=== PATIENT | female | born 2000 | race American Indian/Alaskan Native ===

== ENCOUNTER 2020-09-07 07:41 | Emergency (ER) | payer OTHER, MEDICAID ==
[2020-09-07 07:53] VITALS: BP 137/80
[2020-09-07] MEDS ORDERED: IBUPROFEN 800 MG TAB ONE (07:55)
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
[2020-09-07] MEDS ORDERED: IBUPROFEN 800 MG TAB PO ONE (08:15)
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
== END 2020-09-07 09:55 | disposition home or self-care (01) ==
LOC: ED 07:41
DX: S80.12XA Contusion of left lower leg, initial encounter (principal); Z79.899 Other long term (current) drug therapy; V49.59XA Passenger injured in collision with other motor vehicles in traffic accident, initial encounter; Y93.89 Activity, other specified; Y92.488 Other paved roadways as the place of occurrence of the external cause; Y99.8 Other external cause status
CPT/HCPCS: 71046; 99283

== ENCOUNTER 2021-04-06 12:07 | Emergency (ER) | payer MEDICAID, OTHER ==
[2021-04-06] MEDS: ONDANSETRON 4 MG ODT TAB PO/SL ONE ×2 (12:38→13:01)
--- NOTE | 2021-04-06 13:00 | Emergency Department Report ---
HPI - HPI HPI: 21-year-old -[place] female presents to the emergency department with complaint of middle to lower abdominal pain that has been going on intermittently over the past 5 days since the patient donated plasma. Since that time she has had progressively worsening nausea with vomiting and occasional diarrhea. She denies any fever, dysuria, vaginal bleeding or discharge. No recent travel or sick contacts at home. She denies any past medical history. Patient says that she just recently had her annual women's wellness check with her [employer] and therefore does not believe that she is . She has tried taking some Tylenol for her symptoms but says that she keeps vomiting up the medication. <LETICIA RAY - Last Filed: 04/06/21 15:59> <TIMO JARQUIN - Last Filed: 04/06/21 21:46> - General Chief Complaint: Abdominal Pain Time Seen by Provider: 04/06/21 12:29 ED Past Medical Hx - Social History Smoking Status: Never Smoker Substance Use Type: Marijuana <LETICIA RAY - Last Filed: 04/06/21 15:59> <TIMO JARQUIN - Last Filed: 04/06/21 21:46> - Medications Home Medications: Home Medications Medication Instructions Recorded Confirmed Last Taken Type Ciprofloxacin HCl 500 mg PO BID #10 tablet 04/06/21 Unknown Rx Ondansetron [Zofran Odt] 4 mg PO Q8HR PRN #15 tab.rapdis 04/06/21 Unknown Rx metroNIDAZOLE [Flagyl] 500 mg PO Q8HR #15 tablet 04/06/21 Unknown Rx traMADoL [Ultram 50 MG tab] 50 mg PO Q6HR PRN #10 tablet 04/06/21 Unknown Rx ED Review of Systems ROS: Stated complaint: ABD PAINS Other details as noted in HPI Comment: All other systems reviewed and negative Constitutional: denies: chills, fever Eyes: denies: eye pain, vision change ENT: denies: ear pain, throat pain Respiratory: denies: cough, shortness of breath Cardiovascular: denies: chest pain, palpitations Gastrointestinal: abdominal pain, nausea, vomiting, diarrhea Genitourinary: denies: dysuria, discharge Musculoskeletal: denies: back pain, arthralgia Skin: denies: rash, lesions Neurological: denies: headache, weakness <LETICIA RAY Last Filed: 04/06/21 15:59> ROS: Stated complaint: ABD PAINS Other details as noted in HPI <TIMO JARQUIN - Last Filed: 04/06/21 21:46> Physical Exam - Physical Exam Physical Exam: GENERAL: The patient is well-developed well-nourished. HENT: Normocephalic. Atraumatic. Patient has moist mucous membranes. EYES: Extraocular motions are intact. NECK: Supple. Trachea is midline. CHEST/LUNGS: Clear to auscultation. There is no respiratory distress noted. HEART/CARDIOVASCULAR: Regular. There is no tachycardia. There is no murmur. ABDOMEN: Abdomen is soft. No tenderness to palpation of the abdomen. No guarding. Patient has normal bowel sounds. There is no abdominal distention. SKIN: Skin is warm and dry. NEURO: The patient is awake, alert, and oriented. The patient is cooperative. The patient has no focal neurologic deficits. Normal speech. MUSCULOSKELETAL: There is no tenderness or deformity. There is no limitation range of motion. BACK: No CVA tenderness to palpation. <LETICIA RAY - Last Filed: 04/06/21 15:59> - Physical Exam Vital Signs: Vital Signs 04/06/21 04/06/21 04/06/21 13:26 18:23 18:31 Temperature 97.6 F 97.6 F Pulse Rate 73 73 Respiratory 14 12 12 Rate Blood Pressure Blood Pressure 137/79 133/53 [Right] O2 Sat by Pulse 99 100 Oximetry 04/06/21 04/06/21 04/06/21 18:56 18:57 20:26 Temperature 97.1 F L 99.5 F Pulse Rate 73 83 Respiratory 12 18 Rate Blood Pressure 116/58 Blood Pressure 127/67 [Right] O2 Sat by Pulse 100 100 100 Oximetry <TIMO JARQUIN - Last Filed: 04/06/21 21:46> ED Course Vital Signs 04/06/21 04/06/21 04/06/21 13:26 18:23 18:31 Temperature 97.6 F 97.6 F Pulse Rate 73 73 Respiratory 14 12 12 Rate Blood Pressure Blood Pressure 137/79 133/53 [Right] O2 Sat by Pulse 99 100 Oximetry 04/06/21 04/06/21 04/06/21 18:56 18:57 20:26 Temperature 97.1 F L 99.5 F Pulse Rate 73 83 Respiratory 12 18 Rate Blood Pressure 116/58 Blood Pressure 127/67 [Right] O2 Sat by Pulse 100 100 100 Oximetry - Reevaluation(s) Reevaluation #1: 04/06/21 20:37 Reassessed patient. The patient has right flank and right lower quadrant tenderness on my examination. Her pain is not improved. Care team endorses that the patient has been having persistent nausea and vomiting. Additional analgesia and antiemetic medication have been ordered. The patient reports that she had a pelvic/gynecologic examination yesterday. The patient reports that she is sexually active with one partner without condoms. She denies dyspareunia. The patient reports that she has a distant history of STI, but not recently. Urinalysis concerning. We will obtain a CT scan of the abdomen pelvis. Reassess after initial data points. I have discussed this plan of care with the patient. She articulated understanding. Currently awaiting CT scan abdomen pelvis 04/06/21 21:43 Patient reassessed multiple times. She is uncomfortable. Have reiterated recommendation for CT scan of the abdomen pelvis. The patient states she needs to leave because she has been here all day, and needs to get home to her young family member. She reports there is no one who can take care of this family member. I explained to the patient that I am worried about surgical conditions, such as urinary tract infection, infected kidney stone, and/or appendicitis. The patient has articulated understanding, but she is resolute that she is going to leave. The patient indicates that she will leave AGAINST MEDICAL ADVICE. The patient is currently awake, alert, oriented, sober, and exhibits decision-making capacity. Risks of leaving, including undiagnosed/incompletely treated surgical process or infection, including , disability, paralysis, loss of quality of life, but not limited to the aforementioned, we discussed with the patient, who articulated understanding, and was able to articulate these concerns in her own words. She states she will return in the morning to complete her work-up. The patient is encouraged to return to the emergency room right away if and when she changes her mind. <TIMO JARQUIN - Last Filed: 04/06/21 21:46> ED Medical Decision Making - Lab Data Result diagrams: 04/06/21 12:57 04/06/21 12:57 Lab Results 0904/06/21 04/06/21 Range/Units 12:57 12:57 12:57 WBC 6.2 (4.5-11.0) K/mm3 RBC 4.31 (3.65-5.03) M/mm3 Hgb 12.9 (10.1-14.3) gm/dl Hct 40.0 (30.3-42.9) % MCV 93 (79-97) fl MCH 30 (28-32) pg MCHC 32 (30-34) % RDW 13.3 (13.2-15.2) % Plt Count 296 (140-440) K/mm3 Lymph % (Auto) 32.1 (13.4-35.0) % [place] % (Auto) 7.9 H (0.0-7.3) % Eos % (Auto) 1.8 (0.0-4.3) % Baso % (Auto) 0.7 (0.0-1.8) % Lymph # (Auto) 2.0 (1.2-5.4) K/mm3 [place] # (Auto) 0.5 (0.0-0.8) K/mm3 Eos # (Auto) 0.1 (0.0-0.4) K/mm3 Baso # (Auto) 0.0 (0.0-0.1) K/mm3 Seg Neutrophils % 57.5 (40.0-70.0) % Seg Neutrophils # 3.6 (1.8-7.7) K/mm3 Sodium 139 (137-145) mmol/L Potassium 4.4 (3.6-5.0) mmol/L Chloride 105.3 (98-107) mmol/L Carbon Dioxide 22 (22-30) mmol/L Anion Gap 16 mmol/L BUN 8 (7-17) mg/dL Creatinine 0.9 (0.6-1.2) mg/dL Estimated GFR > 60 ml/min BUN/Creatinine Ratio 9 % Glucose 88 (65-100) mg/dL Calcium 9.2 (8.4-10.2) mg/dL Total Bilirubin 0.50 (0.1-1.2) mg/dL Direct Bilirubin < 0.2 (0-0.2) mg/dL Indirect Bilirubin 0.3 mg/dL AST 12 (5-40) units/L ALT 7 (7-56) units/L Alkaline Phosphatase 71 (35-129) units/L Total Protein 7.4 (6.3-8.2) g/dL Albumin 4.1 (3.9-5) g/dL Albumin/Globulin Ratio 1.2 % Lipase 15 (13-60) units/L HCG, Qual (Negative) 04/06/21 Range/Units 12:57 WBC (4.5-11.0) K/mm3 RBC (3.65-5.03) M/mm3 Hgb (10.1-14.3) gm/dl Hct (30.3-42.9) % MCV (79-97) fl MCH (28-32) pg MCHC (30-34) % RDW (13.2-15.2) % Plt Count (140-440) K/mm3 Lymph % (Auto) (13.4-35.0) % [place] % (Auto) (0.0-7.3) % Eos % (Auto) (0.0-4.3) % Baso % (Auto) (0.0-1.8) % Lymph # (Auto) (1.2-5.4) K/mm3 [place] # (Auto) (0.0-0.8) K/mm3 Eos # (Auto) (0.0-0.4) K/mm3 Baso # (Auto) (0.0-0.1) K/mm3 Seg Neutrophils % (40.0-70.0) % Seg Neutrophils # (1.8-7.7) K/mm3 Sodium (137-145) mmol/L Potassium (3.6-5.0) mmol/L Chloride (98-107) mmol/L Carbon Dioxide (22-30) mmol/L Anion Gap mmol/L BUN (7-17) mg/dL Creatinine (0.6-1.2) mg/dL Estimated GFR ml/min BUN/Creatinine Ratio % Glucose (65-100) mg/dL Calcium (8.4-10.2) mg/dL Total Bilirubin (0.1-1.2) mg/dL Direct Bilirubin (0-0.2) mg/dL Indirect Bilirubin mg/dL AST (5-40) units/L ALT (7-56) units/L Alkaline Phosphatase (35-129) units/L Total Protein (6.3-8.2) g/dL Albumin (3.9-5) g/dL Albumin/Globulin Ratio % Lipase (13-60) units/L HCG, Qual Negative (Negative) - Radiology Data Radiology results: image reviewed interpreted by me: Abdominal x-ray shows nonspecific nonobstructive bowel gas. No free air. - Medical Decision Making This patient presents to the emergency department with a 5-day history of middle to lower abdominal pain, worse on the right side, along with nausea with vomiting. At the time of my examination there is no reproducible tenderness to palpation. The abdomen is soft, nondistended, nontoxic in appearance. The patient's labs have been unremarkable thus far including CBC, metabolic pane l, lipase, and the patient is not . I am still waiting for the urinalysis to result. Abdominal x-ray shows nonspecific nonobstructive bowel gas and no free air. Vital signs have been reassuring throughout her ED course thus far including being afebrile. Patient will be given a prescription for analgesia and antiemetics. She will be given outpatient referral for primary care and gastroenterology. Through shared decision-making, and given her reassuring vital signs, normal laboratory studies, and unremarkable abdominal x-ray, the patient does not require CT imaging of the abdomen and pelvis at this time. However the patient will return to the emergency department immediately with any worsening of her symptoms, especially if it localizes to the right lower quadrant, development of fever, intractable vomiting, or with any acute distress. <LETICIA RAY - Last Filed: 04/06/21 15:59> - Lab Data Result diagrams: 04/06/21 12:57 04/06/21 12:57 - Radiology Data [facility] [address] [place] [address] XRay Report Signed Patient: DARRIN TUCKER MR#: [id number] : 2000 Acct:[id number] Age/Sex: 21 / F ADM Date: 04/06/21 Loc: ED Attending Dr: Ordering Physician: LETICIA RAY DO Date of Service: 04/06/21 Procedure(s): XR abdomen 2V Accession Number(s): [id number] cc: LETICIA RAY DO Fluoro Time In Minutes: ABDOMEN 2 VIEWS INDICATION / CLINICAL INFORMATION: Unspecified abdominal pain with vomiting since Friday. COMPARISON: None available. FINDINGS: TUBES / LINES: None. BOWEL GAS PATTERN: No significant abnormality. FREE AIR / EXTRALUMINAL GAS: None seen. ADDITIONAL FINDINGS: No significant additional fi ndings. CHEST: Visualized chest shows no significant abnormality. IMPRESSION: 1. No significant abnormality. Signer Name: Mark Dyson MD Signed: 04/06/2021 2:50 PM Workstation Name: [id number] Transcribed By: [place] Dictated By: Mark Dyson MD Electronically Authenticated By: Mark Dyson MD Signed Date/Time: 04/06/211449 DD/ 49 <BRITTONTIMO - Last Filed: 04/06/21 21:46> Critical care attestation.: If time is entered above; I have spent that time in minutes in the direct care of this critically ill patient, excluding procedure time. <LETICIA RAY S - Last Filed: 04/06/21 15:59> Critical care attestation.: If time is entered above; I have spent that time in minutes in the direct care of this critically ill patient, excluding procedure time. <BRITTONTIMO Last Filed: 04/06/21 21:46> ED Disposition Is pt being admited?: No Time of Disposition: 16:00 <LETICIA RAY S - Last Filed: 04/06/21 15:59> Is pt being admited?: No Does the pt Need Aspirin: No <BRUCEANA ROSATIMO Filed: 04/06/21 21:46> Clinical Impression: Abdominal pain, Nausea & vomiting Disposition: LEFT AGAINST MEDICAL ADVICE Condition: Undetermined Instructions: Abdominal Pain, Adult, Nausea and Vomiting, Adult, Abdominal Pain (ED) Additional Instructions: As we discussed, you have left the hospital/emergency room AGAINST MEDICAL ADVICE. By leaving, you risked , disability, paralysis, permanent loss of quality of life. The ER is open 24 hours a day, 7 days a week. It never closes. Please return to the emergency room right away if and when you change your mind. If you decide not to return to the emergency room, please follow-up with the listed physician referrals as soon as possible. Prescriptions: traMADoL [Ultram 50 MG tab] 50 mg PO Q6HR PRN #10 tablet PRN Reason: Pain Ondansetron [Zofran Odt] 4 mg PO Q8HR PRN #15 tab.rapdis PRN Reason: Nausea Referrals: [facility] [Provider Group] - [facility] [Provider Group] - JEN SHORE MD [Staff Physician] - [facility] Forms: Work/School Release Form(ED)
[2021-04-06 13:43] LABS: Basophils % (Auto) 0.7 % (0.0-1.8); Eosinophils # (Auto) 0.1 K/mm3 (0.0-0.4); Eosinophils % (Auto) 1.8 % (0.0-4.3); Hemoglobin 12.9 gm/dl (10.1-14.3); Lymphocytes % (Auto) 32.1 % (13.4-35.0); Mean Corpuscular HGB Conc 32 % (30-34); Mean Corpuscular Volume 93 fl (79-97); Monocytes # (Auto) 0.5 K/mm3 (0.0-0.8); Monocytes % (Auto) 7.9 % (0.0-7.3); Platelet Count 296 K/mm3 (140-440); Red Blood Count 4.31 M/mm3 (3.65-5.03); Red Cell Distribution Width 13.3 % (13.2-15.2)
[2021-04-06 14:02] LABS: Alanine Aminotransferase 7 units/L (7-56); Albumin 4.1 g/dL (3.9-5); BUN/Creatinine Ratio 9; Blood Urea Nitrogen 8 mg/dL (7-17); Calcium 9.2 mg/dL (8.4-10.2); Hemolysis Index 5
[2021-04-06 14:13] LABS: Bilirubin,Direct < 0.2 mg/dL (0-0.2)
[2021-04-06] MEDS ORDERED: HYDROcodone/ACETAMINOPHEN 5-325 MG TAB PO ONE (14:36)
--- NOTE | 2021-04-06 14:54 | XRay Report ---
ABDOMEN 2 VIEWS INDICATION / CLINICAL INFORMATION: Unspecified abdominal pain with vomiting since Friday. COMPARISON: None available. FINDINGS: TUBES / LINES: None. BOWEL GAS PATTERN: No significant abnormality. FREE AIR / EXTRALUMINAL GAS: None seen. ADDITIONAL FINDINGS: No significant additional findings. CHEST: Visualized chest shows no significant abnormality. IMPRESSION: 1. No significant abnormality. Signer Name: Mark Dyson MD Signed: 04/06/2021 2:50 PM Workstation Name: [id number]
[2021-04-06] MEDS ORDERED: SUCRALFATE 1 GM/10 ML ORAL LIQD PO ONE (17:00)
[2021-04-06] MEDS ORDERED: PANTOPRAZOLE 40 MG TAB PO ONE (17:00)
[2021-04-06] MEDS ORDERED: DICYCLOMINE 10 MG/5 ML ORAL LIQD PO ONE (17:09)
[2021-04-06 17:34] LABS: Bilirubin,Urine Negative (Negative); Color,Urine YELLOW (Yellow)
[2021-04-06 17:35] LABS: Blood,Urine Large (Negative); PH,Urine 6.5 (5.0-7.0); Urobilinogen,Urine 0.2 mg/dL (<2.0)
[2021-04-06 17:44] LABS: Bacteria,Urine 5 /HPF (Negative); Renal Epithelial Cells,Urine 1 /LPF
[2021-04-06] MEDS ORDERED: MORPHINE 4 MG/1 ML INJ IV ONE (18:11)
[2021-04-06] MEDS ORDERED: ONDANSETRON 4 MG/2 ML INJ IV ONE (18:11)
[2021-04-06] MEDS ORDERED: SODIUM CHLORIDE 0.9% 1000 ML 1,000 ML IV ONE (18:11)
[2021-04-06 20:27] VITALS: BP 116/58
[2021-04-06] MEDS ORDERED: METOCLOPRAMIDE 10 MG/2 ML INJ IV ONE (20:36)
[2021-04-06] MEDS ORDERED: HYDROmorphone 1 MG/1 ML INJ IV ONE (21:26)
== END 2021-04-06 21:58 | disposition left against medical advice (07) ==
LOC: ED 12:07
DX: R10.30 Lower abdominal pain, unspecified (principal); R11.2 Nausea with vomiting, unspecified
CPT/HCPCS: 36415; 74019; 80048; 80076; 81001; 83690; 84703; 85025; 96361; 96374; 96375; 99284; J1170; J2270; J2405; J2765; J7030; Q0162

== ENCOUNTER 2021-04-20 15:39 | Emergency (ER) | payer MEDICAID ==
[2021-04-20 15:47] VITALS: BP 119/80
--- NOTE | 2021-04-20 16:05 | Emergency Department Report ---
Chief Complaint: Pain General Stated Complaint: KIDNEY STONE/RETURN TO WORK LETTER Time Seen by Provider: 04/20/21 15:48 - HPI History of Present Illness: The patient was evaluated in the emergency department for symptoms described in the history of present illness. He/she was evaluated in the context of the global COVID-19 pandemic, which necessitated consideration that the patient might be at risk for infection with the virus that causes COVID-19. Institutional protocols and algorithms that pertain to the evaluation of patients at risk for COVID-19 are in a state of rapid change based on information released by regulatory bodies including the CDC and federal and state organizations. These policies and algorithms were followed during the patient's care in the emergency department. Please note that these policies, procedures and recommendations changed on a rapid basis. 21-year-old -[place] female presents to the emergency room requesting a work excuse. Patient was seen here on 03 April was diagnosed with a kidney stone and was given a return to work excuse for 09 April. Patient reports she went to [facility] and they told her the same thing that she was having a kidney stone. Patient failed to follow-up on outpatient and presents today wanting a return to work excuse. - Exam Vital Signs: Vital Signs 04/20/21 15:44 Temperature 99.3 F Pulse Rate 95 H Respiratory 19 Rate Blood Pressure 119/80 O2 Sat by Pulse 100 Oximetry Physical Exam: Alert and oriented x3 no acute distress nontoxic in appearance Breath is effortless Cardiac regular rate Ambulatory without difficulty MSE screening note: Focused history and physical exam performed. Due to findings the following was ordered: 21-year-old -[place] female presents to the emergency room requesting a work excuse. Patient was seen here on 03 April was diagnosed with a kidney stone and was given a return to work excuse for 09 April. Patient reports she went to [facility] and they told her the same thing that she was having a kidney stone. Patient failed to follow-up on outpatient and presents today wanting a return to work excuse. ED Medical Decision Making - Medical Decision Making 21-year-old -[place] female presents to the emergency room requesting a work excuse. Patient was seen here on 03 April was diagnosed with a kidney stone and was given a return to work excuse for 09 April. Patient reports she went to [facility] and they told her the same thing that she was having a kidney stone. Patient failed to follow-up on outpatient and presents today wanting a return to work excuse. Work excuse given from the original date of service of 04/03/2021 patient is to return on 04/09/[address] Jamison ED Disposition for MSE Is pt being admited?: No Does the pt Need Aspirin: No Condition: Stable Referrals: JEN VALLEJO MD [Staff Physician] - 3-5 Days Forms: Work/School Release Form(ED)
== END 2021-04-20 16:15 | disposition home or self-care (01) ==
LOC: ED 15:39
DX: Z02.79 Encounter for issue of other medical certificate (principal); N20.0 Calculus of kidney
CPT/HCPCS: 99281